=== PATIENT | female | born 1960 | race African-American/Black ===

== ENCOUNTER 2020-05-31 05:58 | Day surgery (SDC) | payer MEDICARE ==
[~2020-05-31] VITALS: Ht 177.8 cm; Wt 98.9 kg
[~2020-05-31 05:58] MED LIST: BAYER CHEWABLE81 MG PO; COMBIGAN OPHT DR5 ML EACH EYE; CYCLOBENZAPRINE10 MG PO; CYMBALTA60 MG PO; GABAPENTIN300 MG PO; LIPITOR10 MG PO; LOSARTAN/HCT TAB 50- PO; MOBIC7.5 MG PO; MULTI-DAY VITAM1 TAB PO; NYSTATIN100000 UN4 PO; OMEPRAZOLE40 MG PO; TRAVATAN Z2.5 ML EACH EYE; WELLBUTRIN SR150 MG PO
[2020-05-31 06:37] LABS: BASOPHILS 0.4 % (0-2); EOSINOPHILS 4.6 % (0-7); HEMATOCRIT 38.3 % (36.0-48.0); HEMOGLOBIN 12.8 g/dL (12-16); IMMATURE GRANULOCYTES 0.1 % (0-5); LYMPHOCYTES 28.8 % (15-50); MCH 29.4 pg (26.0-34.0); MCHC 33.4 g/dL (31.0-37.0); MONOCYTES 6.1 % (2-11); NEUTROPHIL ABS# 5.61 10x3/uL (1.56-6.13); PLATELET COUNT 249 10x3/uL (130-400); RBC 4.35 10x6/uL (4.00-5.40); RDW 13.6 % (11.5-14.5); WBC 9.4 10x3/uL (4.8-10.8)
[2020-05-31 06:45] LABS: CALC OSMOLALITY 283 mosm/kg (275-300); CALCIUM 9.4 mg/dL (8.5-10.1); CARBON DIOXIDE 32.6 mmol/L (21.0-32.0); CHLORIDE - SERUM 105 mmol/L (98-107); CREATININE - SERUM 0.8 mg/dL (0.6-1.3); GLUCOSE 103 mg/dL (74-106); POTASSIUM - SERUM 3.6 mmol/L (3.5-5.1); SODIUM 142 mmol/L (136-145); UREA NITROGEN 14 mg/dL (7-18); eGFR NON AFRICAN AMERICAN 77 mL/min (90-120)
[2020-05-31 07:17] VITALS: BP 130/72; Ht 177.8 cm; Wt 98.9 kg
[2020-05-31] MEDS ORDERED: HYDROCODON-ACE1 EA10 PO (09:05)
--- NOTE | 2020-05-31 09:46 | NUR ---
PT STATED PREVIOUS PAIN BEFORE COMING IN. SORE FROM DIARRHEA.
--- NOTE | 2020-05-31 10:40 | NUR ---
REVIEWED DC INSTRUCTIONS WITH PT AND . VERBALIZED UNDERSTANDGNG.
--- NOTE | 2020-05-31 12:30 | NUR ---
PT IN BATHROOM ATTEMPTING TO VOID. UNSUCCESSFUL. BACK TO BED, GAVE MORE APPLE JUICE TO DRINK AND IVF INFUSING WIDE OPEN.
--- NOTE | 2020-05-31 14:35 | NUR ---
PT TO BATHROOM AND ABLE TO URINATE. STATES SCANT AMOUNT OF BLOOD ON TISSUE WHEN SHE WIPES. PROVIDED SITZ BATH FOR HOME USE AND NEW ICE PACK FOR HOME USAGE. IV DC'D AT THIS TIME BY VENKATESH MCGOWAN. PT GETTING DRESSED FOR DISCHARGE.
--- NOTE | 2020-05-31 14:55 | NUR ---
DISCHARGED AMBULATORY, ACCOMPANIED BY VENKATESH CORNEJO, TO POV WITH SPOUSE DRIVING. ALL BELONGINGS WITH PT/SPOUSE.
--- NOTE | 2020-06-04 12:40 | OP ---
PATIENT NAME: HEMANT PACHECO MEDICAL RECORD: [id number] :58 LOCATION:D.OPS ADMISSION DATE: SURGEON: PEGGY MILLER MD DATE OF OPERATION: 05/31/2020 PREOPERATIVE DIAGNOSES: 1. Rectal prolapse. 2. Hemorrhoids. 3. Hypertension. 4. Hypercholesterolemia. 5. Fibromyalgia. 6. Tobacco dependence syndrome. POSTOPERATIVE DIAGNOSES: 1. Rectal prolapse. 2. Hemorrhoids. 3. Hypertension. 4. Hypercholesterolemia. 5. Fibromyalgia. 6. Tobacco dependence syndrome. PROCEDURE: 1. PPH stapled hemorrhoidectomy. 2. Excision of anal skin tag. SURGEON: Peggy Miller MD DESCRIPTION OF PROCEDURE: The patient was placed in the jackknife prone position. The perianal region was prepped and draped in sterile fashion. An anoscope was inserted and a 360-degree inspection was performed. The patient had a lot of redundant skin around the anus. There was just some mild internal hemorrhoids present. The PPH anoscope was inserted and sutured down on all sides with interrupted 3-0 silks. The patient had a pursestring placed in the distal rectum using a 2-0 Prolene. Another Prolene suture was made on the contralateral side where the pursestring sutures were resting. At this point, a PPH stapler was inserted and with the pursestring pulled tightly we were able to fire the stapler and remove a ring of tissue. At the conclusion of this, there was some bleeding from the posterior aspect of the staple line and this was oversewn with a 2-0 chromic, which discontinued the bleeding. The remainder of the staple line had no signs of any bleeding and appeared to be completely intact. The patient's vaginal wall had been checked prior to firing the stapler and there were no signs of any tethering of the tissue. The PPH anoscope was then removed. There was still some redundant excess anal tissue consistent with anal skin tags present on the most anterior aspect and just to the left of the midline anteriorly. These 2 areas were excised using electrocautery down to the underlying subcutaneous tissue. We then irrigated out these wounds and treated any bleeding with electrocautery. The incisions were then closed with running locked 2-0 chromics. A piece of Gelfoam with Americaine was then inserted into the anus. COMPLICATIONS: None. CONDITION: Stable. ANESTHESIA: General endotracheal. OPERATIVE REPORT [id number] HEMANT PACHECO BLOOD LOSS: Minimal. TRANSINT:[id number] Voice Confirmation ID: [id number] DOCUMENT ID: [id number] PEGGY MILLER MD at 1240 CC: [facility] [id number] DICTATION DATE: 05/31/20908 SENIOR SOFTWARE ENGINEER ANALYTICS: 05/31/20928 DEP SDC 05/31/20 [facility] [address] [place] [address]
== END 2020-05-31 14:55 | disposition home or self-care (01) ==
LOC: D.OPS 05:58
PROVIDERS: ATTEND Surgery
DX: K62.3 Rectal prolapse (principal); I10 Essential (primary) hypertension; K64.9 Unspecified hemorrhoids; E78.00 Pure hypercholesterolemia, unspecified; M79.7 Fibromyalgia; F17.200 Nicotine dependence, unspecified, uncomplicated

== ENCOUNTER 2020-07-03 17:30 | Outpatient (CLI) | payer MEDICARE ==
[2020-05-31 07:17] VITALS: BMI 31.3
[~2020-07-03 17:30] MED LIST changes: +HYDROCODON-ACE1 EA10 PO
== END 2020-07-03 23:59 | disposition home or self-care (01) ==
LOC: D.MAMMO 17:30
DX: Z12.31 Encounter for screening mammogram for malignant neoplasm of breast (principal)